=== PATIENT | male | born 1975 | race Caucasian/White ===

== ENCOUNTER 2021-01-16 20:02 | Inpatient (IN) | payer BC, OTHER ==
[~2021-01-16] VITALS: Ht 157.5 cm; Wt 50.9 kg
[2021-01-16 20:46] LABS: Basophils # (auto) 0.1 10 ^3/uL (0-0.2); Basophils % (auto) 0.6 % (0.0-2.0); Eosinophils # (auto) 0 10 ^3/uL (0-0.8); Eosinophils % (auto) 0.2 % (0.0-7.0); Hematocrit 50.2 % (41.0-53.0); Lymphocytes % (auto) 8.2 % (10.0-50.0); Mean Corpuscular Hemoglobin 32.6 pg (28.0-32.0); Mean Corpuscular Volume 96.1 fL (80.0-100.0); Monocytes % (auto) 7.9 % (0.0-12.0); Neutrophils # (auto) 10.1 10 ^3/uL (1.6-8.6); Neutrophils % (auto) 83.1 % (37.0-80.0); Nucleated Red Blood Cells % 0.1 %; Red Blood Cells 5.22 10^6/uL (4.5-5.90); Red Cell Distribution Width 12.9 % (11.8-14.3); White Blood Cell 12.2 10^3/uL (4.4-10.8)
[2021-01-16 20:54] LABS: Anion Gap 19 (5-15); Blood Urea Nitrogen 13 mg/dL (7-18); Calcium 8.7 mg/dL (8.5-10.1); Carbon Dioxide 13 mmol/L (21-32); Chloride 102 mmol/L (98-107); Glucose 264 mg/dL (74-106); Potassium 5.2 mmol/L (3.5-5.1); Sodium 134 mmol/L (136-145)
[2021-01-16 21:00] LABS: Alanine Aminotransferase 36 U/L (16-61); Alkaline Phosphatase 110 U/L (45-117); Aspartate Aminotransferase 29 U/L (15-37); BUN/Creatinine Ratio 11.4; Bilirubin, Total 0.6 mg/dL (0.2-1.0); GFR African American 90 mL/min; GFR Non-African American 75 mL/min
[2021-01-16 21:02] LABS: INR 0.97 (0.9-1.15); Partial Thromboplastin Time 23.4 sec (23.0-31.2)
[2021-01-17 02:47] LABS: Urine WBC None Seen /hpf (0 - 3)
[2021-01-17 03:04] LABS: Urine Bacteria NONE SEEN /hpf (None Seen); Urine Blood Negative /uL (Negative); Urine Specific Gravity 1.022 (1.001-1.035)
[2021-01-17] MEDS ORDERED: DEXTROSE (50%) 50ML SYRG IV PRN ×3 (03:30→11:30)
[2021-01-17] MEDS: ACCU-CHEK COMFORT CURVE STRIP VI SCH ×8 (03:33→20:20)
[2021-01-17] MEDS ORDERED: InsuLIN REG 1unit/0.01ml Soln (100units/ml) ONE (03:44)
[2021-01-17] MEDS: InsuLIN R (HUMAN) 100 UNITS in SODIUM CHL 0.9% 99 ML IV SCH ×2 (03:51→09:00)
[2021-01-17] MEDS ORDERED: SODIUM CHLORIDE 0.9% 1,000 ML IV ONE ×2 (04:00)
[2021-01-17] MEDS ORDERED: ONDANSETRON HCL 4 MG/2 ML VIAL IV ONE (04:15)
[2021-01-17] MEDS: SODIUM CHLORIDE 0.9% 1,000 ML IV SCH ×3 (06:45→13:06)
[2021-01-17] MEDS ORDERED: ONDANSETRON HCL 4 MG/2 ML VIAL IV PRN (06:45)
[2021-01-17] MEDS ORDERED: NITROGLYCERIN 0.4 MG SL TAB SL PRN (06:45)
[2021-01-17] MEDS ORDERED: INSULIN LANTUS (GLARGINE) 1 /0.01ml (100units/ml) SC ONE (06:45)
[2021-01-17] MEDS ORDERED: MORPHINE SULFATE INJECTION 2 MG/ML SYRG IV PRN (06:45)
[2021-01-17] MEDS ORDERED: ACCU-CHEK COMFORT CURVE STRIP VI SCH (07:30)
[2021-01-17 09:00] LABS: Calcium 7.9 mg/dL (8.5-10.1); Potassium 4.4 mmol/L (3.5-5.1)
[2021-01-17] MEDS: PANTOPRAZOLE 40 MG/10 ML VIAL INJ IV SCH (10:00)
[2021-01-17] MEDS ORDERED: SODIUM CHLORIDE 0.9% 1,000 ML IV SCH (10:45)
[2021-01-17] MEDS: InsuLIN REG 1unit/0.01ml Soln (100units/ml) SC SCH ×3 (12:00→20:22)
[2021-01-17 13:30] VITALS: BP 107/62
[2021-01-17 13:36] LABS: BUN/Creatinine Ratio 9.9; Calcium 7.9 mg/dL (8.5-10.1); Potassium 4.3 mmol/L (3.5-5.1)
[2021-01-17 13:40] VITALS: BP 107/62
[2021-01-17] MEDS ORDERED: INSLISPI SC (15:32)
[2021-01-17] MEDS ORDERED: INSU100I33 SC (15:32)
[2021-01-17] MEDS ORDERED: PROP80CA40 PO (15:32)
[2021-01-17 16:41] VITALS: BP 111/65
[2021-01-17 18:48] LABS: BUN/Creatinine Ratio 9.6; Calcium 7.7 mg/dL (8.5-10.1); Potassium 4.1 mmol/L (3.5-5.1)
[2021-01-17 21:48] VITALS: BP 120/66
[2021-01-18] MEDS: ACCU-CHEK COMFORT CURVE STRIP VI SCH ×4 (00:29→11:48)
[2021-01-18] MEDS: SODIUM CHLORIDE 0.9% 1,000 ML IV SCH ×3 (00:29→08:45)
[2021-01-18] MEDS: InsuLIN REG 1unit/0.01ml Soln (100units/ml) SC SCH ×4 (00:34→11:59)
[2021-01-18 01:04] LABS: BUN/Creatinine Ratio 12.5; Calcium 7.9 mg/dL (8.5-10.1); Potassium 3.7 mmol/L (3.5-5.1)
[2021-01-18 05:22] VITALS: BP 114/76
[2021-01-18 06:14] LABS: Basophils # (auto) 0 10 ^3/uL (0-0.2); Basophils % (auto) 0.7 % (0.0-2.0); Eosinophils # (auto) 0.2 10 ^3/uL (0-0.8); Eosinophils % (auto) 3.4 % (0.0-7.0); Hematocrit 36.6 % (41.0-53.0); Hemoglobin 13.2 g/dL (13.5-17.5); Lymphocytes # (auto) 2.4 10 ^3/uL (0.4-5.4); Lymphocytes % (auto) 41.8 % (10.0-50.0); Mean Corpuscular Hemoglobin 33.5 pg (28.0-32.0); Mean Corpuscular Volume 93.2 fL (80.0-100.0); Monocytes # (auto) 0.8 10 ^3/uL (0-1.3); Monocytes % (auto) 13.3 % (0.0-12.0); Neutrophils # (auto) 2.3 10 ^3/uL (1.6-8.6); Neutrophils % (auto) 40.8 % (37.0-80.0); Nucleated Red Blood Cells % 0.1 %; Red Blood Cells 3.93 10^6/uL (4.5-5.90); Red Cell Distribution Width 12.5 % (11.8-14.3); White Blood Cell 5.7 10^3/uL (4.4-10.8)
[2021-01-18 09:00] VITALS: BP 111/69
[2021-01-18] MEDS: PANTOPRAZOLE 40 MG/10 ML VIAL INJ IV SCH (09:00)
[2021-01-18] MEDS ORDERED: INSULIN LANTUS (GLARGINE) 1 /0.01ml (100units/ml) SC SCH (10:00)
== END 2021-01-18 13:40 | disposition home or self-care (01) | DRG 639 ==
LOC: ER 20:02 → OVERFLOW 01-17 06:32 → CENTRAL 01-17 13:25
PROVIDERS: ADMIT Nurse Practitioner; ATTEND Nurse Practitioner
DX: E11.10 Type 2 diabetes mellitus with ketoacidosis without coma (principal); E87.8 Other disorders of electrolyte and fluid balance, not elsewhere classified; Z20.822 Contact with and (suspected) exposure to COVID-19; Z91.14 Patient's other noncompliance with medication regimen
CPT/HCPCS: 36415; 36600; 71045; 80048; 80053; 81001; 82010; 82805; 82962; 83880; 83930; 84484; 85025; 85610; 85730; 87426; 93005; 96361; 96365; 96372; 96375; C9113; G0378; J1815; J2405

== ENCOUNTER 2021-11-05 19:00 | Inpatient (IN) | payer BC ==
[~2021-11-05] VITALS: Ht 170.2 cm; Wt 50.5 kg
[~2021-11-05 19:00] MED LIST: INSLISPI SC; INSU100I33 SC; PROP80CA40 PO
[2021-11-05 20:02] LABS: Basophils # (auto) 0.1 10 ^3/uL (0-0.2); Basophils % (auto) 0.6 % (0.0-2.0); Eosinophils # (auto) 0 10 ^3/uL (0-0.8); Eosinophils % (auto) 0.3 % (0.0-7.0); Hematocrit 47.8 % (41.0-53.0); Hemoglobin 15.9 g/dL (13.5-17.5); Lymphocytes % (auto) 7.9 % (10.0-50.0); Mean Corpuscular Hemoglobin 31.6 pg (28.0-32.0); Mean Corpuscular Hgb Conc. 33.3 g/dL (32.0-36.0); Mean Corpuscular Volume 94.7 fL (80.0-100.0); Monocytes # (auto) 0.8 10 ^3/uL (0-1.3); Monocytes % (auto) 6.9 % (0.0-12.0); Neutrophils # (auto) 10.3 10 ^3/uL (1.6-8.6); Neutrophils % (auto) 84.3 % (37.0-80.0); Nucleated Red Blood Cells % 0.1 %; Red Blood Cells 5.04 10^6/uL (4.5-5.90); White Blood Cell 12.2 10^3/uL (4.4-10.8)
[2021-11-05 20:07] LABS: Urine Bacteria NONE SEEN /hpf (None Seen); Urine Blood Negative /uL (Negative); Urine Specific Gravity 1.018 (1.001-1.035); Urine WBC <1 /hpf (0 - 3)
[2021-11-05] MEDS ORDERED: SODIUM CHLORIDE 0.9% 1,000 ML IV ONE (21:15)
[2021-11-05] MEDS ORDERED: InsuLIN REG 1unit/0.01ml Soln (100units/ml) IV ONE (21:15)
[2021-11-05] MEDS: D5W/SOD CHL 0.45%/KCL 20MEQ 1,000 ML IV SCH (21:30)
[2021-11-05] MEDS: SODIUM CHLORIDE 0.9% 1,000 ML IV SCH ×2 (21:56→23:34)
[2021-11-05] MEDS: ACCU-CHEK COMFORT CURVE STRIP VI SCH ×2 (22:30→23:43)
[2021-11-05 23:19] LABS: Potassium 4.8 mmol/L (3.5-5.1)
[2021-11-05 23:21] LABS: Albumin 4.3 g/dL (3.4-5.0); BUN/Creatinine Ratio 16.3; Bilirubin, Total 0.6 mg/dL (0.2-1.0); Calcium 8.2 mg/dL (8.5-10.1); Magnesium 2.5 mg/dL (1.6-2.6); Total Protein 8.1 g/dL (6.4-8.2)
[2021-11-05] MEDS ORDERED: InsuLIN R (HUMAN) 100 UNITS in SODIUM CHL 0.9% 99 ML IV SCH (23:30)
[2021-11-06] VITALS (62 sets, daily range): BP systolic 93–135; BP diastolic 40–76
[2021-11-06] MEDS ORDERED: ONDANSETRON HCL 4 MG/2 ML VIAL IV PRN (00:45)
[2021-11-06] MEDS ORDERED: FOLIC ACID 1 MG TAB PO ONE (00:45)
[2021-11-06] MEDS ORDERED: THIAMINE HCL 100 MG TAB PO ONE (00:45)
[2021-11-06 01:09] LABS: Anion Gap 21 (5-15); Blood Urea Nitrogen 15 mg/dL (7-18); Calcium 7.9 mg/dL (8.5-10.1); Chloride 107 mmol/L (98-107); Glucose 234 mg/dL (74-106); Magnesium 2.3 mg/dL (1.6-2.6); Sodium 135 mmol/L (136-145)
[2021-11-06 01:11] LABS: BUN/Creatinine Ratio 14.4; Blood Alcohol < 3.0 mg/dL (0-5); GFR African American 100 mL/min; GFR Non-African American 82 mL/min; Phosphorus 3.5 mg/dL (2.5-4.90)
[2021-11-06] MEDS: ACCU-CHEK COMFORT CURVE STRIP VI SCH ×15 (01:30→21:09)
[2021-11-06 01:32] LABS: Carbon Dioxide 7 mmol/L (21-32); Potassium 5.6 mmol/L (3.5-5.1)
[2021-11-06] MEDS ORDERED: INSULIN LANTUS (GLARGINE) 1 /0.01ml (100units/ml) SC ONE (01:45)
[2021-11-06] MEDS ORDERED: InsuLIN R (HUMAN) 100 UNITS in SODIUM CHL 0.9% 99 ML IV SCH ×4 (01:45)
[2021-11-06] MEDS ORDERED: DEXTROSE (50%) 50ML SYRG IV PRN ×2 (01:45→21:30)
[2021-11-06] MEDS: InsuLIN R (HUMAN) 100 UNITS in SODIUM CHL 0.9% 99 ML IV SCH ×8 (01:45→17:05)
[2021-11-06] MEDS: SODIUM CHLORIDE 0.9% 1,000 ML IV SCH ×3 (02:06→05:00)
[2021-11-06] MEDS ORDERED: ACETAMINOPHEN 325 MG TAB PO ONE (02:15)
[2021-11-06] MEDS: D5W/SOD CHL 0.45%/KCL 20MEQ 1,000 ML IV SCH ×3 (03:13→22:14)
[2021-11-06 04:23] LABS: Hematocrit 41.4 % (41.0-53.0); Hemoglobin 13.7 g/dL (13.5-17.5); Mean Corpuscular Hemoglobin 31.4 pg (28.0-32.0); Mean Corpuscular Hgb Conc. 33.2 g/dL (32.0-36.0); Mean Corpuscular Volume 94.6 fL (80.0-100.0); Red Blood Cells 4.37 10^6/uL (4.5-5.90); Red Cell Distribution Width 12.6 % (11.8-14.3); White Blood Cell 15.9 10^3/uL (4.4-10.8)
[2021-11-06 04:32] LABS: Basophils % (manual) 0 (0.0-2.0); Blast Cells 0; Eosinophils % (manual) 0 (0-7); Metamyelocytes % 0; Promyelocytes % 0; Reactive Lymphocytes 0
[2021-11-06 04:44] LABS: Calcium 7.1 mg/dL (8.5-10.1); Potassium 4.6 mmol/L (3.5-5.1)
[2021-11-06 04:45] LABS: BUN/Creatinine Ratio 12.9
[2021-11-06 04:54] LABS: Urine WBC None Seen /hpf (0 - 3)
[2021-11-06] MEDS: SODIUM CHLOR 0.9% PF (SALINE LOCK) 10ML VIAL/SYR IV SCH ×3 (05:02→21:12)
[2021-11-06 05:39] LABS: Urine Bacteria FEW /hpf (None Seen); Urine Blood TRACE /uL (Negative); Urine Specific Gravity 1.014 (1.001-1.035)
[2021-11-06] MEDS ORDERED: D5W/SOD CHL 0.45% 1,000 ML IV SCH (05:45)
[2021-11-06] MEDS ORDERED: SODIUM CHLORIDE 0.9% 1,000 ML IV SCH ×2 (05:45→07:45)
[2021-11-06 06:57] LABS: Band Neutrophils % (manual) 18; Lymphocytes % (manual) 15 (10.0-50.0); Monocytes % (manual) 8 (0-12); Myelocytes % 4
[2021-11-06 07:43] LABS: BUN/Creatinine Ratio 11.5; Calcium 7.3 mg/dL (8.5-10.1); Potassium 4.9 mmol/L (3.5-5.1)
[2021-11-06] MEDS: INSULIN LANTUS (GLARGINE) 1 /0.01ml (100units/ml) SC SCH (10:50)
[2021-11-06] MEDS: NICOTINE 21MG/24 HR TOPICAL PATCH TD SCH (11:00)
[2021-11-06 14:21] LABS: Calcium 7.8 mg/dL (8.5-10.1)
[2021-11-06 14:24] LABS: BUN/Creatinine Ratio 6.5
[2021-11-06 19:55] LABS: BUN/Creatinine Ratio 5.9; Calcium 7.8 mg/dL (8.5-10.1); Potassium 3.6 mmol/L (3.5-5.1)
[2021-11-06] MEDS ORDERED: ACETAMINOPHEN 325 MG TAB PO PRN (21:30)
[2021-11-07] VITALS (19 sets, daily range): BP systolic 97–134; BP diastolic 56–84
[2021-11-07] MEDS: ACCU-CHEK COMFORT CURVE STRIP VI SCH ×6 (00:12→21:21)
[2021-11-07] MEDS: InsuLIN REG 1unit/0.01ml Soln (100units/ml) SC SCH ×6 (04:00→21:25)
[2021-11-07 04:48] LABS: Basophils # (auto) 0 10 ^3/uL (0-0.2); Basophils % (auto) 0.5 % (0.0-2.0); Eosinophils # (auto) 0.2 10 ^3/uL (0-0.8); Eosinophils % (auto) 2.2 % (0.0-7.0); Hematocrit 40.5 % (41.0-53.0); Hemoglobin 13.8 g/dL (13.5-17.5); Lymphocytes % (auto) 30.3 % (10.0-50.0); Mean Corpuscular Hemoglobin 31.6 pg (28.0-32.0); Mean Corpuscular Hgb Conc. 34.2 g/dL (32.0-36.0); Mean Corpuscular Volume 92.4 fL (80.0-100.0); Monocytes # (auto) 0.9 10 ^3/uL (0-1.3); Monocytes % (auto) 13.3 % (0.0-12.0); Neutrophils # (auto) 3.6 10 ^3/uL (1.6-8.6); Neutrophils % (auto) 53.7 % (37.0-80.0); Nucleated Red Blood Cells % 0.2 %; Red Blood Cells 4.38 10^6/uL (4.5-5.90); Red Cell Distribution Width 12.7 % (11.8-14.3); White Blood Cell 6.7 10^3/uL (4.4-10.8)
[2021-11-07 05:18] LABS: Albumin 2.9 g/dL (3.4-5.0); Calcium 7.5 mg/dL (8.5-10.1); Potassium 3.6 mmol/L (3.5-5.1)
[2021-11-07 05:22] LABS: BUN/Creatinine Ratio 7.6; Bilirubin, Total 0.7 mg/dL (0.2-1.0); Total Protein 5.5 g/dL (6.4-8.2)
[2021-11-07] MEDS: SODIUM CHLOR 0.9% PF (SALINE LOCK) 10ML VIAL/SYR IV SCH ×3 (06:19→21:20)
[2021-11-07] MEDS: NICOTINE 21MG/24 HR TOPICAL PATCH TD SCH (10:00)
[2021-11-07] MEDS: INSULIN LANTUS (GLARGINE) 1 /0.01ml (100units/ml) SC SCH (11:29)
[2021-11-07] MEDS: D5W/SOD CHL 0.45%/KCL 20MEQ 1,000 ML IV SCH (12:05)
[2021-11-07 14:25] LABS: Calcium 8.1 mg/dL (8.5-10.1); Potassium 3.6 mmol/L (3.5-5.1)
[2021-11-07 14:27] LABS: BUN/Creatinine Ratio 4.3
[2021-11-08 05:00] VITALS: BP 118/76
[2021-11-08] MEDS: SODIUM CHLOR 0.9% PF (SALINE LOCK) 10ML VIAL/SYR IV SCH (06:00)
[2021-11-08] MEDS: ACCU-CHEK COMFORT CURVE STRIP VI SCH ×2 (06:01→11:44)
[2021-11-08] MEDS: InsuLIN REG 1unit/0.01ml Soln (100units/ml) SC SCH ×2 (06:02→11:43)
[2021-11-08 06:11] LABS: Basophils # (auto) 0.1 10 ^3/uL (0-0.2); Basophils % (auto) 0.8 % (0.0-2.0); Eosinophils # (auto) 0.2 10 ^3/uL (0-0.8); Eosinophils % (auto) 2.7 % (0.0-7.0); Hematocrit 38.9 % (41.0-53.0); Hemoglobin 13.7 g/dL (13.5-17.5); Lymphocytes # (auto) 2.2 10 ^3/uL (0.4-5.4); Lymphocytes % (auto) 33.5 % (10.0-50.0); Mean Corpuscular Hemoglobin 31.8 pg (28.0-32.0); Mean Corpuscular Hgb Conc. 35.3 g/dL (32.0-36.0); Mean Corpuscular Volume 90.1 fL (80.0-100.0); Monocytes # (auto) 0.8 10 ^3/uL (0-1.3); Monocytes % (auto) 12.3 % (0.0-12.0); Neutrophils # (auto) 3.4 10 ^3/uL (1.6-8.6); Neutrophils % (auto) 50.7 % (37.0-80.0); Nucleated Red Blood Cells % 0.1 %; Red Blood Cells 4.32 10^6/uL (4.5-5.90); Red Cell Distribution Width 12.6 % (11.8-14.3); White Blood Cell 6.7 10^3/uL (4.4-10.8)
[2021-11-08 06:18] LABS: Albumin 2.9 g/dL (3.4-5.0); Calcium 8.2 mg/dL (8.5-10.1); Potassium 3.3 mmol/L (3.5-5.1)
[2021-11-08 06:22] LABS: BUN/Creatinine Ratio 9.8; Bilirubin, Total 0.6 mg/dL (0.2-1.0); Total Protein 5.8 g/dL (6.4-8.2)
[2021-11-08 09:00] VITALS: BP 108/68
[2021-11-08] MEDS: NICOTINE 21MG/24 HR TOPICAL PATCH TD SCH (09:53)
[2021-11-08] MEDS: INSULIN LANTUS (GLARGINE) 1 /0.01ml (100units/ml) SC SCH (09:54)
[2021-11-08 12:12] VITALS: BP 126/82
[2021-11-08 13:00] VITALS: BP 126/82
== END 2021-11-08 00:49 | disposition home or self-care (01) | DRG 639 ==
LOC: EDUNIT# 19:00 → EDBD 19:00 → ER 19:04 → TELE 11-06 00:41 → ICU CENTRL 11-06 04:10 → DOU IN ICU 11-06 04:11 → EAST 11-07 16:30
PROVIDERS: ADMIT Internal Medicine; ATTEND Internal Medicine
DX: E11.10 Type 2 diabetes mellitus with ketoacidosis without coma (principal); R00.0 Tachycardia, unspecified; D72.829 Elevated white blood cell count, unspecified; R94.31 Abnormal electrocardiogram [ECG] [EKG]; Z72.0 Tobacco use; Z79.4 Long term (current) use of insulin; Z83.3 Family history of diabetes mellitus; Z80.9 Family history of malignant neoplasm, unspecified; Z91.14 Patient's other noncompliance with medication regimen
CPT/HCPCS: 36415; 36600; 71045; 80048; 80053; 80320; 81001; 82010; 82805; 82962; 83036; 83735; 83930; 84100; 84484; 85007; 85025; 85027; 87081; 93005; 96361; 96365; 96372; 96375; G0378; J1815; J2405

== ENCOUNTER 2022-06-06 06:16 | Inpatient (IN) | payer BC, OTHER ==
[~2022-06-06] VITALS: Ht 170.2 cm; Wt 53.0 kg
[2022-06-06] VITALS (12 sets, daily range): BP systolic 87–116; BP diastolic 40–69
[2022-06-06 07:11] LABS: Basophils # (auto) 0.2 10 ^3/uL (0-0.2); Basophils % (auto) 1.1 % (0.0-2.0); Eosinophils # (auto) 0.1 10 ^3/uL (0-0.8); Eosinophils % (auto) 0.7 % (0.0-7.0); Hematocrit 48.9 % (41.0-53.0); Lymphocytes # (auto) 1.8 10 ^3/uL (0.4-5.4); Lymphocytes % (auto) 11.7 % (10.0-50.0); Mean Corpuscular Hemoglobin 31.2 pg (28.0-32.0); Mean Corpuscular Hgb Conc. 32.7 g/dL (32.0-36.0); Mean Corpuscular Volume 95.6 fL (80.0-100.0); Monocytes # (auto) 0.8 10 ^3/uL (0-1.3); Neutrophils # (auto) 12.6 10 ^3/uL (1.6-8.6); Neutrophils % (auto) 81.5 % (37.0-80.0); Red Blood Cells 5.12 10^6/uL (4.5-5.90); Red Cell Distribution Width 14.3 % (11.8-14.3); White Blood Cell 15.4 10^3/uL (4.4-10.8)
[2022-06-06 07:19] LABS: Albumin 4.6 g/dL (3.4-5.0); Calcium 9.5 mg/dL (8.5-10.1); Potassium 5.5 mmol/L (3.5-5.1)
[2022-06-06 07:22] LABS: BUN/Creatinine Ratio 12.2; Bilirubin, Total 0.5 mg/dL (0.2-1.0); Total Protein 8.4 g/dL (6.4-8.2)
[2022-06-06] MEDS: SODIUM CHLORIDE 0.9% 3,000 ML IV ONE ×2 (07:39→07:53)
[2022-06-06 07:42] LABS: Urine Bacteria NONE SEEN /hpf (None Seen); Urine Blood TRACE /uL (Negative); Urine Specific Gravity 1.025 (1.001-1.035); Urine WBC <1 /hpf (0 - 3)
[2022-06-06] MEDS ORDERED: SODIUM CHLORIDE 0.9% 1,000 ML IVB ONE (07:45)
[2022-06-06] MEDS ORDERED: ONDANSETRON HCL 4 MG/2 ML VIAL IV ONE ×2 (07:45)
[2022-06-06 08:19] LABS: Magnesium 1.7 mg/dL (1.6-2.6)
[2022-06-06] MEDS ORDERED: InsuLIN REG 1unit/0.01ml Soln (100units/ml) IV ONE (09:00)
[2022-06-06] MEDS: ACCU-CHEK COMFORT CURVE STRIP VI SCH ×10 (09:00→22:08)
[2022-06-06] MEDS ORDERED: SODIUM BICARBONATE 8.4 % INJ 50ML VIAL IV ONE ×3 (09:00→13:35)
[2022-06-06] MEDS ORDERED: DEXTROSE (50%) 50ML SYRG IV PRN (09:00)
[2022-06-06] MEDS: InsuLIN R (HUMAN) 100 UNITS in SODIUM CHL 0.9% 99 ML IV SCH (09:39)
[2022-06-06 10:56] LABS: Calcium 8.2 mg/dL (8.5-10.1)
[2022-06-06 11:02] LABS: BUN/Creatinine Ratio 13.2
[2022-06-06] MEDS ORDERED: SODIUM BICARBONATE 50ML VIAL 150 ML in D5W 5% 1,000 ML IV ONE (13:30)
[2022-06-06] MEDS ORDERED: MORPHINE SULFATE INJ 2 MG/ml SYRG IV PRN (13:45)
[2022-06-06] MEDS ORDERED: HYDROcodone-ACET 5/325MG TAB PO PRN (13:45)
[2022-06-06] MEDS ORDERED: DOCUSATE SOD 100 MG CAP PO PRN (13:45)
[2022-06-06] MEDS ORDERED: ACETAMINOPHEN 325 MG TAB PO PRN (13:45)
[2022-06-06] MEDS ORDERED: ONDANSETRON HCL 4 MG/2 ML VIAL IV PRN (13:45)
[2022-06-06] MEDS: SODIUM CHLOR 0.9% PF (SALINE LOCK) 10ML VIAL/SYR IV SCH ×2 (14:08→22:07)
[2022-06-06 15:21] LABS: BUN/Creatinine Ratio 10.9; Calcium 7.3 mg/dL (8.5-10.1)
[2022-06-06 22:24] LABS: BUN/Creatinine Ratio 7.4; Calcium 7.4 mg/dL (8.5-10.1); Potassium 3.3 mmol/L (3.5-5.1)
[2022-06-07] VITALS (48 sets, daily range): BP systolic 95–141; BP diastolic 45–87
[2022-06-07] MEDS: ACCU-CHEK COMFORT CURVE STRIP VI SCH ×12 (00:28→22:07)
[2022-06-07 04:49] LABS: Calcium 7.8 mg/dL (8.5-10.1); Potassium 3.1 mmol/L (3.5-5.1)
[2022-06-07] MEDS: SODIUM CHLOR 0.9% PF (SALINE LOCK) 10ML VIAL/SYR IV SCH ×3 (05:49→22:07)
[2022-06-07] MEDS ORDERED: POTASSIUM CHL 20MEQ/100ML 100 ML IV ONE (06:15)
[2022-06-07] MEDS: InsuLIN R (HUMAN) 100 UNITS in SODIUM CHL 0.9% 99 ML IV SCH (09:00)
[2022-06-07 10:48] LABS: Magnesium 1.7 mg/dL (1.6-2.6)
[2022-06-07] MEDS: MAGNESIUM SULFATE 1GM/100ML 100 ML IV SCH ×2 (11:43→13:00)
[2022-06-07] MEDS ORDERED: POTASSIUM PHOSPHATE 44 MEQ in D5W 5% 250 ML IV ONE (11:45)
[2022-06-07] MEDS ORDERED: INSULIN LANTUS (GLARGINE) 1 /0.01ml (100units/ml) SC ONE (14:45)
[2022-06-07] MEDS ORDERED: DEXTROSE (50%) 50ML SYRG IV PRN (14:45)
[2022-06-07] MEDS: SODIUM CHLORIDE 0.9% 1,000 ML IV SCH (15:17)
[2022-06-07] MEDS: InsuLIN REG 1unit/0.01ml Soln (100units/ml) SC SCH (17:00)
[2022-06-07] MEDS ORDERED: InsuLIN REG 1unit/0.01ml Soln (100units/ml) SC SCH (22:00)
[2022-06-08] VITALS (20 sets, daily range): BP systolic 101–137; BP diastolic 53–84
[2022-06-08] MEDS: SODIUM CHLORIDE 0.9% 1,000 ML IV SCH ×2 (01:00→10:32)
[2022-06-08 03:45] LABS: Basophils # (auto) 0.1 10 ^3/uL (0-0.2); Basophils % (auto) 0.9 % (0.0-2.0); Eosinophils # (auto) 0.2 10 ^3/uL (0-0.8); Hematocrit 36.8 % (41.0-53.0); Hemoglobin 12.3 g/dL (13.5-17.5); Lymphocytes # (auto) 2.1 10 ^3/uL (0.4-5.4); Lymphocytes % (auto) 35.6 % (10.0-50.0); Mean Corpuscular Hemoglobin 30.6 pg (28.0-32.0); Mean Corpuscular Hgb Conc. 33.5 g/dL (32.0-36.0); Mean Corpuscular Volume 91.3 fL (80.0-100.0); Monocytes # (auto) 0.7 10 ^3/uL (0-1.3); Monocytes % (auto) 11.3 % (0.0-12.0); Neutrophils # (auto) 2.9 10 ^3/uL (1.6-8.6); Neutrophils % (auto) 49.2 % (37.0-80.0); Nucleated Red Blood Cells % 0.3 %; Red Blood Cells 4.03 10^6/uL (4.5-5.90); Red Cell Distribution Width 14.2 % (11.8-14.3); White Blood Cell 5.9 10^3/uL (4.4-10.8)
[2022-06-08 04:03] LABS: Albumin 2.7 g/dL (3.4-5.0); Calcium 7.8 mg/dL (8.5-10.1); Potassium 3.1 mmol/L (3.5-5.1)
[2022-06-08 04:04] LABS: BUN/Creatinine Ratio 7.8
[2022-06-08 04:07] LABS: Bilirubin, Total 0.6 mg/dL (0.2-1.0); Total Protein 5.2 g/dL (6.4-8.2)
[2022-06-08] MEDS: SODIUM CHLOR 0.9% PF (SALINE LOCK) 10ML VIAL/SYR IV SCH (06:03)
[2022-06-08] MEDS: ACCU-CHEK COMFORT CURVE STRIP VI SCH ×2 (06:43→11:30)
[2022-06-08] MEDS: InsuLIN REG 1unit/0.01ml Soln (100units/ml) SC SCH ×2 (06:43→12:05)
[2022-06-08] MEDS ORDERED: INSULIN LANTUS (GLARGINE) 1 /0.01ml (100units/ml) SC SCH (10:00)
[2022-06-08] MEDS ORDERED: POTASSIUM CHL 20MEQ/100ML 100 ML IV ONE (10:15)
[2022-06-08 10:32] LABS: Magnesium 1.7 mg/dL (1.6-2.6); Phosphorus 2.2 mg/dL (2.5-4.90)
[2022-06-08] MEDS ORDERED: POTASSIUM PHOSPHATE 44 MEQ in D5W 5% 250 ML IV ONE (13:30)
== END 2022-06-08 15:45 | disposition home or self-care (01) | DRG 639 ==
LOC: EDBD 06:16 → ER 06:16 → TELE 13:36 → ICU WEST 18:15
PROVIDERS: ADMIT Internal Medicine; ATTEND Internal Medicine
DX: E11.10 Type 2 diabetes mellitus with ketoacidosis without coma (principal); I10 Essential (primary) hypertension; E87.6 Hypokalemia; E86.0 Dehydration; F17.210 Nicotine dependence, cigarettes, uncomplicated; Z20.822 Contact with and (suspected) exposure to COVID-19; Z91.199 Patient's noncompliance with other medical treatment and regimen due to unspecified reason
CPT/HCPCS: 36415; 36600; 71045; 80048; 80053; 81001; 82010; 82805; 82962; 83036; 83690; 83735; 83930; 84100; 84484; 85025; 87081; 93005; 96361; 96365; 96367; 96375; 96376; 99291; G0378; J1815; J2405; J3480; J7060

== ENCOUNTER 2023-06-20 15:29 | Inpatient (IN) | payer BC, OTHER ==
[~2023-06-20] VITALS: Ht 165.1 cm; Wt 54.5 kg
[~2023-06-20 15:29] MED LIST changes: +AZITTAB PO; +INSLANTI SC
[2023-06-20 16:35] LABS: Basophils # (auto) 0.1 10 ^3/uL (0-0.2); Basophils % (auto) 0.3 % (0.0-2.0); Eosinophils # (auto) 0 10 ^3/uL (0-0.8); Eosinophils % (auto) 0.1 % (0.0-7.0); Hemoglobin 16.4 g/dL (13.5-17.5); Lymphocytes # (auto) 1.6 10 ^3/uL (0.4-5.4); Lymphocytes % (auto) 7.9 % (10.0-50.0); Mean Corpuscular Hemoglobin 31.6 pg (28.0-32.0); Mean Corpuscular Hgb Conc. 29.2 g/dL (32.0-36.0); Mean Corpuscular Volume 108.3 fL (80.0-100.0); Monocytes # (auto) 1.6 10 ^3/uL (0-1.3); Monocytes % (auto) 7.5 % (0.0-12.0); Neutrophils # (auto) 17.4 10 ^3/uL (1.6-8.6); Neutrophils % (auto) 84.2 % (37.0-80.0); Red Blood Cells 5.19 10^6/uL (4.5-5.90); White Blood Cell 20.6 10^3/uL (4.4-10.8)
[2023-06-20 16:36] LABS: Hematocrit 56.2 % (41.0-53.0)
[2023-06-20 16:56] VITALS: PULSE 134; RESP 24; O2SAT 98
[2023-06-20 16:56] LABS: Alanine Aminotransferase 29 U/L (7-40); Albumin 4.8 g/dL (3.2-4.8); Alkaline Phosphatase 205 U/L (46-116); Anion Gap 30.00001 (5-15); Aspartate Aminotransferase 23 U/L (13-40); BUN/Creatinine Ratio 10.6 (10.0-20.0); Bilirubin, Total 0.3 mg/dL (0.2-1.0); Blood Urea Nitrogen 27 mg/dL (9-23); Chloride 92 mmol/L (98-107); Sodium 132 mmol/L (136-145)
[2023-06-20 16:57] LABS: Urine Bacteria NONE SEEN /hpf (None Seen); Urine Blood TRACE /uL (Negative); Urine Clarity Clear (Clear); Urine Color Colorless (Yellow); Urine Protein, UAD 1+ (Negative); Urine Specific Gravity 1.022 (1.001-1.035); Urine Urobilinogen Normal (Negative); Urine WBC 1 /hpf (0 - 3)
[2023-06-20 17:07] LABS: Carbon Dioxide < 10 mmol/L (20-30); Glucose 769 mg/dL (74-106); Potassium 6.1 mmol/L (3.5-5.1)
[2023-06-20] MEDS ORDERED: SODIUM CHLORIDE 0.9% 2,000 ML IV ONE (17:15)
[2023-06-20] MEDS ORDERED: SODIUM CHLORIDE 0.9% 3,000 ML IV ONE (17:45)
[2023-06-20] MEDS: ACCU-CHEK COMFORT CURVE STRIP VI SCH ×5 (18:22→22:48)
[2023-06-20 18:28] LABS: Magnesium 2.6 mg/dL (1.6-2.6)
[2023-06-20 18:29] LABS: Phosphorus 10.7 mg/dL (2.4-5.1)
[2023-06-20] MEDS ORDERED: VANCOMYCIN 1GM/250ML 250 ML IV ONE (18:30)
[2023-06-20] MEDS ORDERED: InsuLIN REG 1unit/0.01ml Soln (100units/ml) IV ONE (18:30)
[2023-06-20] MEDS ORDERED: InsuLIN R (HUMAN) 100 UNITS in SODIUM CHL 0.9% 99 ML IV SCH ×2 (18:30→20:30)
[2023-06-20] MEDS ORDERED: PIPERACILLIN-TAZOB 3.375GM 100 ML IV ONE (18:30)
[2023-06-20] MEDS ORDERED: DEXTROSE (50%) 50ML SYRG IV PRN ×2 (18:30→20:30)
[2023-06-20 19:00] VITALS: PULSE 117; RESP 28; O2SAT 100
[2023-06-20] MEDS ORDERED: NITROGLYCERIN 0.4 MG SL TAB SL PRN (20:30)
[2023-06-20] MEDS ORDERED: MORPHINE SULFATE INJ 2 MG/ml SYRG IV PRN (20:30)
[2023-06-20] MEDS ORDERED: ONDANSETRON HCL 4 MG/2 ML VIAL IV PRN (20:30)
[2023-06-20] MEDS ORDERED: INSULIN LANTUS (GLARGINE) 1 /0.01ml (100units/ml) SC ONE (20:30)
[2023-06-20] MEDS ORDERED: cefTRIAXone 1GM/50ML D5W 50 ML IV ONE (20:30)
[2023-06-20 21:18] LABS: Basophils # (auto) 0.1 10 ^3/uL (0-0.2); Basophils % (auto) 0.3 % (0.0-2.0); Eosinophils # (auto) 0 10 ^3/uL (0-0.8); Eosinophils % (auto) 0.1 % (0.0-7.0); Hemoglobin 15.6 g/dL (13.5-17.5); Sodium 140 mmol/L (136-145)
[2023-06-20 21:19] LABS: Anion Gap 20.00001 (5-15); Calcium 8.1 mg/dL (8.5-10.1)
[2023-06-20 21:20] LABS: Hematocrit 51.4 % (41.0-53.0); Lymphocytes # (auto) 2.2 10 ^3/uL (0.4-5.4); Lymphocytes % (auto) 10.2 % (10.0-50.0); Mean Corpuscular Hemoglobin 31.7 pg (28.0-32.0); Mean Corpuscular Hgb Conc. 30.4 g/dL (32.0-36.0); Mean Corpuscular Volume 104.3 fL (80.0-100.0); Monocytes # (auto) 1.2 10 ^3/uL (0-1.3); Monocytes % (auto) 5.7 % (0.0-12.0); Neutrophils # (auto) 18.1 10 ^3/uL (1.6-8.6); Neutrophils % (auto) 83.7 % (37.0-80.0); Red Blood Cells 4.93 10^6/uL (4.5-5.90); Red Cell Distribution Width 14.7 % (11.8-14.3); White Blood Cell 21.7 10^3/uL (4.4-10.8)
[2023-06-20 21:24] LABS: BUN/Creatinine Ratio 9.8 (10.0-20.0); Blood Urea Nitrogen 19 mg/dL (9-23)
[2023-06-20 21:26] LABS: Lactic Acid w/Reflex 3.2 mmol/L (0.4-2.0)
[2023-06-20 21:30] LABS: Chloride 110 mmol/L (98-107)
[2023-06-20 21:32] LABS: Carbon Dioxide < 10 mmol/L (20-30); Glucose 549 mg/dL (74-106); Potassium 5.8 mmol/L (3.5-5.1)
[2023-06-20] MEDS ORDERED: SODIUM BICARBONATE 50ML VIAL 100 ML in SOD CHL 0.45% 1,000 ML IV ONE (22:15)
[2023-06-20] MEDS ORDERED: SODIUM ZIRCONIUM CYCL 10 GM PAK PO ONE (22:15)
[2023-06-20] MEDS ORDERED: SODIUM BICARBONATE 8.4% INJ 50ML SYRINGE ONE (22:23)
[2023-06-20] MEDS ORDERED: SODIUM CHLORIDE 0.9% 500 ML IV ONE (23:00)
[2023-06-21] MEDS: ACCU-CHEK COMFORT CURVE STRIP VI SCH ×17 (00:10→22:26)
[2023-06-21 02:28] LABS: Chloride 112 mmol/L (98-107); Potassium 4.7 mmol/L (3.5-5.1); Sodium 139 mmol/L (136-145)
[2023-06-21 02:29] LABS: Anion Gap 15 (5-15); Calcium 7.6 mg/dL (8.7-10.4); Carbon Dioxide 12 mmol/L (20-30)
[2023-06-21] MEDS ORDERED: SODIUM CHLORIDE 0.9% 1,000 ML IV SCH (02:30)
[2023-06-21 02:34] LABS: Blood Urea Nitrogen 18 mg/dL (9-23)
[2023-06-21 02:36] LABS: Glucose 239 mg/dL (74-106)
[2023-06-21 07:40] VITALS: PULSE 111; RESP 24; O2SAT 98
[2023-06-21] MEDS: cefTRIAXone 1GM/50ML D5W 50 ML IV SCH (09:08)
[2023-06-21 09:12] LABS: Chloride 111 mmol/L (98-107); Potassium 3.7 mmol/L (3.5-5.1); Sodium 141 mmol/L (136-145)
[2023-06-21 09:13] LABS: Anion Gap 11 (5-15); Calcium 7.6 mg/dL (8.5-10.1); Carbon Dioxide 19 mmol/L (20-30)
[2023-06-21 09:18] LABS: BUN/Creatinine Ratio 13.3 (10.0-20.0); Blood Urea Nitrogen 14 mg/dL (9-23); Glucose 105 mg/dL (74-106)
[2023-06-21] MEDS ORDERED: INSULIN LANTUS (GLARGINE) 1 /0.01ml (100units/ml) SC SCH (10:00)
[2023-06-21] MEDS ORDERED: DEXTROSE (50%) 50ML SYRG IV PRN (13:45)
[2023-06-21 17:00] VITALS: BP 140/72; PULSE 80; RESP 18; TEMP 97.8; O2SAT 99
[2023-06-21] MEDS: InsuLIN REG 1unit/0.01ml Soln (100units/ml) SC SCH (18:00)
[2023-06-21 18:06] VITALS: PULSE 85; RESP 21; O2SAT 97
[2023-06-21 20:00] VITALS: BP 98/62; PULSE 97; RESP 17; RESP 20; TEMP 100.2; O2SAT 96
[2023-06-21] MEDS: guaiFENesin-DM 100/10mg/5ml SYR PO SCH (21:52)
[2023-06-21 22:00] VITALS: BP 98/62; PULSE 97; RESP 20; TEMP 100.2; O2SAT 96
[2023-06-22] MEDS: ACCU-CHEK COMFORT CURVE STRIP VI SCH ×9 (00:02→13:28)
[2023-06-22] MEDS: InsuLIN REG 1unit/0.01ml Soln (100units/ml) SC SCH ×3 (00:06→13:27)
[2023-06-22 05:00] VITALS: BP 124/60; PULSE 91; RESP 20; TEMP 98.9; O2SAT 98
[2023-06-22] MEDS: guaiFENesin-DM 100/10mg/5ml SYR PO SCH ×2 (06:25→14:00)
[2023-06-22 09:00] VITALS: BP 128/82; PULSE 79; RESP 18; TEMP 98.5; O2SAT 97
[2023-06-22] MEDS: cefTRIAXone 1GM/50ML D5W 50 ML IV SCH (11:07)
[2023-06-22 11:33] LABS: Basophils # (auto) 0 10 ^3/uL (0-0.2); Basophils % (auto) 0.3 % (0.0-2.0); Eosinophils # (auto) 0 10 ^3/uL (0-0.8); Eosinophils % (auto) 0.5 % (0.0-7.0); Hematocrit 37.5 % (41.0-53.0); Hemoglobin 12.8 g/dL (13.5-17.5); Lymphocytes # (auto) 1.3 10 ^3/uL (0.4-5.4); Lymphocytes % (auto) 15.7 % (10.0-50.0); Mean Corpuscular Hemoglobin 31.6 pg (28.0-32.0); Mean Corpuscular Hgb Conc. 34.2 g/dL (32.0-36.0); Mean Corpuscular Volume 92.6 fL (80.0-100.0); Monocytes # (auto) 0.9 10 ^3/uL (0-1.3); Monocytes % (auto) 11.4 % (0.0-12.0); Neutrophils % (auto) 72.1 % (37.0-80.0); Nucleated Red Blood Cells % 0.1 %; Red Blood Cells 4.06 10^6/uL (4.5-5.90); White Blood Cell 8.4 10^3/uL (4.4-10.8)
[2023-06-22 13:00] VITALS: BP 137/69; PULSE 92; RESP 18; TEMP 98.4; O2SAT 96
== END 2023-06-22 15:45 | disposition home or self-care (01) | DRG 871 ==
LOC: ER 15:29 → EDBD 15:29 → TELE 20:32 → TELE-EAST 06-21 17:19 → EAST 06-22 01:19
PROVIDERS: ADMIT Nurse Practitioner; ATTEND Family Medicine
DX: A41.9 Sepsis, unspecified organism (principal); E11.10 Type 2 diabetes mellitus with ketoacidosis without coma; N17.0 Acute kidney failure with tubular necrosis; E87.5 Hyperkalemia; E86.0 Dehydration; I10 Essential (primary) hypertension; E11.42 Type 2 diabetes mellitus with diabetic polyneuropathy; E78.00 Pure hypercholesterolemia, unspecified; D72.829 Elevated white blood cell count, unspecified; Z91.199 Patient's noncompliance with other medical treatment and regimen due to unspecified reason; Z79.4 Long term (current) use of insulin; Z79.899 Other long term (current) drug therapy
CPT/HCPCS: 36415; 36600; 71045; 80048; 80053; 81001; 82010; 82805; 82962; 83605; 83735; 83930; 84100; 85025; 87040; 93005; 96365; 96366; 96367; 96368; 96372; 96375; 99291; G0378; J0696; J1815; J2543